=== PATIENT | male | born 1975 ===

== ENCOUNTER 2019-09-15 14:31 | Inpatient (IN) ==
[2019-09-15] MEDS ORDERED: GLUCAGON 1 MG VIAL IM PRN (15:39)
[2019-09-15] MEDS ORDERED: DEXTROSE 50% 25 GM/50 ML VIAL IV PRN (15:39)
[2019-09-15] MEDS ORDERED: ONDANSETRON 4 MG/2 ML VIAL IV PRN (15:39)
[2019-09-15] MEDS ORDERED: ACETAMINOPHEN 325 MG TABLET PO PRN (15:39)
[2019-09-15 15:41] LABS: Basophils % 0.4 % (0.0-0.8); Eosinophils # 0.1 10*3/uL (0.0-0.87); Eosinophils % 0.6 % (0.00-10.9); Hematocrit 43.5 VOL% (42.0-52.0); Hemoglobin 14.6 GM/DL (14.0-18.0); Immature Granulocytes % 1.2 %; Immature Granulocytes Absolute 0.12 #; Lymphocytes # 0.9 10*3/uL (1.4-4.0); Lymphocytes % 8.2 % (21.2-54.2); Mean Corpuscular HGB Conc 33.6 GM/DL (32-36); Mean Corpuscular Volume 86.8 FL (87-102); Mean Platelet Volume 9.8 FL (9.6-12.0); Monocytes % 7.5 % (1.7-12.7); Neutrophils % 82.1 % (38.7-73.9); Platelet Count 289 T/CUMM (130-400); Red Blood Count 5.01 MC/CUMM (3.8-5.5); Red Cell Distribution Width 13.3 % (9.3-17.3); White Blood Count 10.4 T/CUMM (4-12)
[2019-09-15] MEDS: SODIUM CHLORIDE 0.9% 1,000 ML IV SCH (15:42)
[2019-09-15] MEDS: VANCOMYCIN INJ 1,000 MG in SODIUM CHLORIDE 0.9% 250 ML IV SCH (15:42)
[2019-09-15 16:28] LABS: Albumin 3.1 G/DL (3.4-5.0); Bilirubin,Total 0.4 MG/DL (0.2-1.0); Osmolality,Calculated 266.2 MOS/KG (273-304); Total Protein 8.8 G/DL (6.4-8.3)
[2019-09-15 16:55] LABS: Sedimentation Rate-Westergren 17 MM/HR (0-15)
[2019-09-15] MEDS: INSULIN LISPRO 100 UNIT/ML SUBCUT SCH ×2 (17:11→21:31)
[2019-09-15] MEDS: ENOXAPARIN 40 MG/0.4 ML SYRINGE SUBCUT SCH (21:31)
[2019-09-16] MEDS: SODIUM CHLORIDE 0.9% 1,000 ML IV SCH ×3 (00:48→17:01)
[2019-09-16] MEDS: VANCOMYCIN INJ 1,000 MG in SODIUM CHLORIDE 0.9% 250 ML IV SCH ×2 (03:27→17:03)
[2019-09-16 06:11] LABS: Basophils % 0.3 % (0.0-0.8); Eosinophils # 0.1 10*3/uL (0.0-0.87); Eosinophils % 1.7 % (0.00-10.9); Hematocrit 40.3 VOL% (42.0-52.0); Hemoglobin 13.2 GM/DL (14.0-18.0); Immature Granulocytes % 1.7 %; Immature Granulocytes Absolute 0.12 #; Lymphocytes # 0.9 10*3/uL (1.4-4.0); Lymphocytes % 12.5 % (21.2-54.2); Mean Corpuscular HGB Conc 32.8 GM/DL (32-36); Mean Corpuscular Volume 89.2 FL (87-102); Mean Platelet Volume 9.6 FL (9.6-12.0); Monocytes % 11.4 % (1.7-12.7); Neutrophils % 72.4 % (38.7-73.9); Platelet Count 248 T/CUMM (130-400); Red Blood Count 4.52 MC/CUMM (3.8-5.5); Red Cell Distribution Width 13.3 % (9.3-17.3); White Blood Count 7.2 T/CUMM (4-12)
[2019-09-16 06:42] LABS: Albumin 2.5 G/DL (3.4-5.0); Bilirubin,Total 0.5 MG/DL (0.2-1.0); Calcium 8.2 MG/DL (8.5-10.1); Osmolality,Calculated 267.8 MOS/KG (273-304); Risk Ratio 3.03; Thyroid Stimulating Hormone 1.68 uIU/ml (0.358-3.74); Total Protein 7.6 G/DL (6.4-8.3)
[2019-09-16] MEDS ORDERED: VANCOMYCIN INJ 1,000 MG in SODIUM CHLORIDE 0.9% 250 ML IV SCH (09:00)
[2019-09-16] MEDS ORDERED: MAGNESIUM SULF RIDER 4 GM in PREMIX 1 EACH IV PRN (09:03)
[2019-09-16] MEDS: PANTOPRAZOLE 40 MG TABLET PO SCH (10:03)
[2019-09-16] MEDS: INSULIN LISPRO 100 UNIT/ML SUBCUT SCH ×4 (10:04→22:07)
[2019-09-16] MEDS: MAGNESIUM SULF RIDER 2 GM in PREMIX 1 EACH IV PRN (10:09)
[2019-09-16] MEDS: ENOXAPARIN 40 MG/0.4 ML SYRINGE SUBCUT SCH (22:08)
[2019-09-17] MEDS: SODIUM CHLORIDE 0.9% 1,000 ML IV SCH ×4 (03:53→23:44)
[2019-09-17] MEDS: VANCOMYCIN INJ 1,000 MG in SODIUM CHLORIDE 0.9% 250 ML IV SCH ×2 (03:55→15:17)
[2019-09-17 07:21] LABS: Basophils % 0.5 % (0.0-0.8); Eosinophils # 0.1 10*3/uL (0.0-0.87); Eosinophils % 1.9 % (0.00-10.9); Hematocrit 40.2 VOL% (42.0-52.0); Hemoglobin 13.5 GM/DL (14.0-18.0); Immature Granulocytes % 2.2 %; Immature Granulocytes Absolute 0.14 #; Lymphocytes % 15.6 % (21.2-54.2); Mean Corpuscular HGB Conc 33.6 GM/DL (32-36); Mean Corpuscular Volume 86.5 FL (87-102); Mean Platelet Volume 9.3 FL (9.6-12.0); Neutrophils % 68.8 % (38.7-73.9); Platelet Count 273 T/CUMM (130-400); Red Blood Count 4.65 MC/CUMM (3.8-5.5); Red Cell Distribution Width 13.2 % (9.3-17.3); White Blood Count 6.4 T/CUMM (4-12)
[2019-09-17] MEDS: INSULIN LISPRO 100 UNIT/ML SUBCUT SCH ×4 (07:53→20:42)
[2019-09-17 07:55] LABS: Albumin 2.7 G/DL (3.4-5.0); Bilirubin,Total 0.6 MG/DL (0.2-1.0); Calcium 8.5 MG/DL (8.5-10.1); Osmolality,Calculated 265.4 MOS/KG (273-304); Total Protein 7.7 G/DL (6.4-8.3)
[2019-09-17] MEDS: PANTOPRAZOLE 40 MG TABLET PO SCH (08:55)
[2019-09-17] MEDS: ENOXAPARIN 40 MG/0.4 ML SYRINGE SUBCUT SCH (20:43)
[2019-09-18] MEDS: VANCOMYCIN INJ 1,000 MG in SODIUM CHLORIDE 0.9% 250 ML IV SCH ×2 (05:59→17:24)
[2019-09-18 06:18] LABS: Basophils # 0.1 10*3/uL (0.0-0.2); Basophils % 0.8 % (0.0-0.8); Eosinophils # 0.3 10*3/uL (0.0-0.87); Eosinophils % 3.9 % (0.00-10.9); Hematocrit 42.3 VOL% (42.0-52.0); Hemoglobin 13.8 GM/DL (14.0-18.0); Immature Granulocytes % 4.1 %; Immature Granulocytes Absolute 0.26 #; Lymphocytes % 16.3 % (21.2-54.2); Mean Corpuscular HGB Conc 32.6 GM/DL (32-36); Mean Corpuscular Volume 88.3 FL (87-102); Mean Platelet Volume 9.5 FL (9.6-12.0); Monocytes % 12.8 % (1.7-12.7); Neutrophils % 62.1 % (38.7-73.9); Platelet Count 278 T/CUMM (130-400); Red Blood Count 4.79 MC/CUMM (3.8-5.5); Red Cell Distribution Width 13.2 % (9.3-17.3); White Blood Count 6.3 T/CUMM (4-12)
[2019-09-18 06:48] LABS: Albumin 2.6 G/DL (3.4-5.0); Bilirubin,Total 0.5 MG/DL (0.2-1.0); Calcium 8.6 MG/DL (8.5-10.1); Osmolality,Calculated 262.8 MOS/KG (273-304); Total Protein 7.9 G/DL (6.4-8.3)
[2019-09-18] MEDS: MAGNESIUM SULF RIDER 2 GM in PREMIX 1 EACH IV PRN (09:09)
[2019-09-18] MEDS: SODIUM CHLORIDE 0.9% 1,000 ML IV SCH ×2 (09:09→17:36)
[2019-09-18] MEDS: PANTOPRAZOLE 40 MG TABLET PO SCH (09:10)
[2019-09-18] MEDS: INSULIN LISPRO 100 UNIT/ML SUBCUT SCH ×4 (09:13→21:21)
[2019-09-18] MEDS: ENOXAPARIN 40 MG/0.4 ML SYRINGE SUBCUT SCH (21:21)
[2019-09-19] MEDS: VANCOMYCIN INJ 1,000 MG in SODIUM CHLORIDE 0.9% 250 ML IV SCH ×2 (06:36→17:35)
[2019-09-19] MEDS: SODIUM CHLORIDE 0.9% 1,000 ML IV SCH ×4 (07:05→19:46)
[2019-09-19] MEDS: INSULIN LISPRO 100 UNIT/ML SUBCUT SCH ×4 (09:11→21:39)
[2019-09-19] MEDS: PANTOPRAZOLE 40 MG TABLET PO SCH (09:11)
[2019-09-19] MEDS: ENOXAPARIN 40 MG/0.4 ML SYRINGE SUBCUT SCH (21:39)
[2019-09-20] MEDS: SODIUM CHLORIDE 0.9% 1,000 ML IV SCH ×2 (04:59→09:20)
[2019-09-20] MEDS: VANCOMYCIN INJ 1,000 MG in SODIUM CHLORIDE 0.9% 250 ML IV SCH (04:59)
[2019-09-20] MEDS: PANTOPRAZOLE 40 MG TABLET PO SCH (07:59)
[2019-09-20] MEDS: INSULIN LISPRO 100 UNIT/ML SUBCUT SCH ×2 (09:19→12:57)
[2019-09-20 12:20] VITALS: BP 151/94
== END 2019-09-20 12:26 | disposition home or self-care (01) | DRG 603 ==
LOC: EDUNIT# → EDBD → N.ED 14:31 → SUATTDRO 15:33 → N.EDINP 15:33 → N.3E 16:10
PROVIDERS: ADMIT Internal Medicine Geriatric Medicine; ATTEND Internal Medicine